=== PATIENT | female | born 1990 | race African-American/Black ===

== ENCOUNTER 2019-12-12 08:37 | Emergency (ER) | payer BC, SELFPAY ==
[2019-12-12 08:50] VITALS: BP 121/77; PULSE 79; RESP 16; TEMP 36.4; O2SAT 100
--- NOTE | 2019-12-12 09:07 | ED.GENADULT ---
HPI - General Adult General Chief complaint: Skin/Abscess/Foreign Body Stated complaint: Swollen Thumb Time Seen by Provider: 12/12/19 09:12 History of Present Illness HPI narrative: This is a 29-year-old female noted that her left was started to swell a little bit states that she used Betadine on her thumb denies any warm compresses. Patient states that her thumb really hurts and she did not know what to do for it. Related Data Allergies Allergy/AdvReac Type Severity Reaction Status Date / Time amoxicillin [From Augmentin] Allergy Swelling Verified 12/12/19 09:10 clavulanic acid Allergy Swelling Verified 12/12/19 09:10 [From Augmentin] peanut Allergy Swelling Verified 12/12/19 09:11 Review of Systems Review of Systems: Narrative: CONSTITUTIONAL: Denies fever, chills, or sweats. EYES: Denies visual changes, redness, or discharge. ENT: Denies rhinorrhea, congestion, sore throat, or otalgia. CARDIOVASCULAR:Denies chest pain, palpitations, or edema. RESPIRATORY: Denies cough or dyspnea. GASTROINTESTINAL: Denies abdominal pain, nausea, vomiting, or diarrhea. GENITOURINARY: Denies dysuria or hematuria. SKIN:[Denies rash or itching. Skin erythema and swelling MUSCULOSKELETAL:Denies back pain, joint pain, or myalgia. NEUROLOGIC: Denies headache, numbness, or weakness. PSYCHIATRIC:Denies anxiety or depression PMFSH Social History Social History Gender identity (if verbalized by the patient): Female Comments At time as signature, I have reviewed and agree with nursing past medical, social, surgical and family history. Please see nursing chart for further information. There is no relevant family history pertinent to the presenting complaint. Exam Narrative: Exam Narrative: GENERAL:Well-appearing, well-nourished, and in no acute distress. HEAD:Normocephalic, atraumatic. EYES: PERRLA and EOMI. ENT: Nares clear, no rhinorrhea or epistaxis. Mucous membranes moist. NECK: Supple. CHEST: Clear to auscultation. No respiratory distress. HEART: Regular rate and rhythm. No murmur heard. Normal peripheral pulses. ABDOMEN: Soft, nontender, nondistended, normal active bowel sounds. EXTREMITIES: Normal range of motion. No edema. SKIN: Warm, dry, no rash. Minimal amount of skin erythema to the left no fluid noted NEURO: No focal deficits. Alert and oriented x3. Course Vital Signs Vital signs: Vital Signs Temperature 97.6 F 12/12/19 08:50 Pulse Rate 79 12/12/19 08:50 Respiratory Rate 16 12/12/19 08:50 Blood Pressure 121/77 12/12/19 08:50 Pulse Oximetry 100 12/12/19 08:50 Temperature 97.6 F 12/12/19 08:50 Pulse Rate 79 12/12/19 08:50 Respiratory Rate 16 12/12/19 08:50 Blood Pressure 121/77 12/12/19 08:50 Pulse Oximetry 100 12/12/19 08:50 Medical Decision Making Vital Signs Vital Signs: Vital Signs Temperature 97.6 F 12/12/19 08:50 Pulse Rate 79 12/12/19 08:50 Respiratory Rate 16 12/12/19 08:50 Blood Pressure 121/77 12/12/19 08:50 Pulse Oximetry 100 12/12/19 08:50 Temperature 97.6 F 12/12/19 08:50 Pulse Rate 79 12/12/19 08:50 Respiratory Rate 16 12/12/19 08:50 Blood Pressure 121/77 12/12/19 08:50 Pulse Oximetry 100 12/12/19 08:50 Discharge Plan Discharge Clinical Impression: Paronychia Patient Disposition: Home, Self-Care Condition: Stable Instructions: Antibiotic Form, Paronychia (ED) Additional Instructions: Warm compresses 3-4 times a day no more than 20 minutes at a time may use Epson salt. When you are at work use a Band-Aid around her fingernail. No false fingernails Prescriptions: New mupirocin 2 % ointment 1 applic TOPICAL BID Qty: 15 RF: 0 Follow-up/Referrals: PHYSICIAN,LEGAL RESEARCH ANALYST [Primary Care Provider] - Stand Alone Forms: Work/School Release IP Time of Disposition: 09:17
== END 2019-12-12 09:20 | disposition home or self-care (01) ==
PROVIDERS: Emergency Provider Nurse Practitioner Family
DX: L03.012 Cellulitis of left finger (principal)
CPT/HCPCS: 99203; G0463

== ENCOUNTER 2020-08-27 13:45 | Emergency (ER) | payer OTHER, SELFPAY ==
--- NOTE | 2020-08-27 13:55 | ED.GENADULT ---
HPI - General Adult General Chief complaint: Urogenital-Female Stated complaint: possible uti Time Seen by Provider: 08/27/20 13:55 Source: patient Mode of arrival: ambulatory Limitations: no limitations History of Present Illness HPI narrative: 22-year-old female patient presents to the [facility] with complaints of vaginal irritation. Patient states that the irritation started yesterday. Patient states that she did see a little bit of white discharge yesterday. Patient denies any pain with urination but states that she did have a burning pain when in the shower this morning. Denies any itching. Patient states that she is sexually active but does use protection. Patient denies any bright or breast-feeding that she is aware of. Patient states she would like to be tested for STDs today. Patient denies any low back pain, lower abdominal pain, fevers, body aches or chills. Denies any nausea, vomiting or diarrhea. Related Data Allergies Allergy/AdvReac Type Severity Reaction Status Date / Time amoxicillin [From Augmentin] Allergy Swelling Verified 08/27/20 14:11 clavulanic acid Allergy Swelling Verified 08/27/20 14:11 [From Augmentin] peanut Allergy Swelling Verified 08/27/20 14:11 Review of Systems Review of Systems: Narrative: CONSTITUTIONAL: Denies fever, chills, or sweats. EYES: Denies visual changes, redness, or discharge. ENT: Denies rhinorrhea, congestion, sore throat, or otalgia. CARDIOVASCULAR: Denies chest pain, palpitations, or edema. RESPIRATORY: Denies cough or dyspnea. GASTROINTESTINAL: Denies abdominal pain, nausea, vomiting, or diarrhea. GENITOURINARY: Denies dysuria or hematuria. Positive vaginal irritation and white discharge present SKIN: Denies rash or itching. MUSCULOSKELETAL: Denies back pain, joint pain, or myalgia. NEUROLOGIC: Denies headache, numbness, or weakness. PSYCHIATRIC: Denies anxiety or depression. PMFSH Social History Social History Gender identity (if verbalized by the patient): Female Comments At the time of my signature I agree with nursing past medical history, surgical, social, and family history. There is no relevant family history pertinent to the presenting complaint. Exam Narrative: Exam Narrative: GENERAL: Well-appearing, well-nourished, and in no acute distress. HEAD: Normocephalic, atraumatic. EYES: PERRLA and EOMI. ENT: Nares clear, no rhinorrhea or epistaxis. Mucous membranes moist. NECK: Supple. No lymphadenopathy CHEST: Clear to auscultation. No respiratory distress. HEART: Regular rate and rhythm. No murmur heard. Normal peripheral pulses. ABDOMEN: Soft, nontender, nondistended, normal active bowel sounds. No CVA tenderness on percussion : Normal external female genitalia. OS is closed. No adnexal fullness or TTP. No CVA tenderness to percussion. Patient does have some white milky discharge with a notable odor. EXTREMITIES: Normal range of motion. No edema. SKIN: Warm, dry, no rash. NEURO: No focal deficits. Alert and oriented x3. Course Vital Signs Vital signs: Vital Signs Temperature 36.4 C 08/27/20 14:05 Pulse Rate 86 08/27/20 14:05 Respiratory Rate 16 08/27/20 14:05 Blood Pressure 134/80 08/27/20 14:05 Pulse Oximetry 99 08/27/20 14:05 Temperature 36.4 C 08/27/20 14:05 Pulse Rate 86 08/27/20 14:05 Respiratory Rate 16 08/27/20 14:05 Blood Pressure 134/80 08/27/20 14:05 Pulse Oximetry 99 08/27/20 14:05 Vital signs reviewed. The patient has been informed that they may have pre-hypertension or Hypertension based on a BP reading in the department. I recommend that the patient call the primary care provider listed on their discharge instructions or a physician of their choice this week to arrange follow up for further evaluation of possible pre-hypertension or Hypertension Medical Decision Making Differential Diagnosis Differential Diagnosis: Differentia
[2020-08-27 14:05] VITALS: BP 134/80; PULSE 86; RESP 16; TEMP 36.4; O2SAT 99
[2020-08-27] MEDS: AZITHROMYCIN 250 MG TABLET 1000 MG PO (14:31)
[2020-08-27] MEDS: cefTRIAXone 250 MG VIAL IM (14:32)
[2020-08-27] MEDS: LIDOCAINE HCL 1% LOCAL INJ 20 ML VIAL IM (14:34)
== END 2020-08-27 14:52 | disposition home or self-care (01) ==
PROVIDERS: Emergency Provider Nurse Practitioner Family
DX: N89.8 Other specified noninflammatory disorders of vagina (principal); Z20.2 Contact with and (suspected) exposure to infections with a predominantly sexual mode of transmission
CPT/HCPCS: 81003; 81025; 87077; 87086; 87088; 87186; 87491; 87591; 87661; 96372; 99214; A9270; G0463; J0696

== ENCOUNTER 2021-03-05 13:34 | Emergency (ER) | payer OTHER, SELFPAY ==
[2021-03-05 13:39] VITALS: BP 125/67; PULSE 77; RESP 18; TEMP 36.1; O2SAT 100
--- NOTE | 2021-03-05 14:17 | ED.FEMALEGU ---
HPI - Female Genitourinary General Chief complaint: Urogenital-Female Stated complaint: std Time Seen by Provider: 03/05/21 14:10 Source: patient Mode of arrival: ambulatory Limitations: no limitations History of Present Illness HPI Narrative: Kiera Goldstein is a 31 yo female with no PMH who [facility] with complaints of vaginal irritation and swelling but no discharge. She states that she used a different type of condom to cause irritation and also used a perfumed soap that she is relatively confident that she does not have exposure to an STD she has a single partner. She has been treated here before for similar symptoms and was treated for an STD and she stated that when the results came back from the STD cultures that in fact they were negative and the medications she was given was not necessary. I agreed to hold off antibiotics until these results are received and will treat her for bacterial infection from the irritants described above Related Data Home Medications Medication Instructions Recorded Confirmed Amoxil 03/05/21 Allergies Allergy/AdvReac Type Severity Reaction Status Date / Time amoxicillin [From Augmentin] Allergy Swelling Verified 03/05/21 13:50 clavulanic acid Allergy Swelling Verified 03/05/21 13:50 [From Augmentin] peanut Allergy Swelling Verified 03/05/21 13:50 Review of Systems Review of Systems: Narrative: CONSTITUTIONAL: Denies fever, chills, sweats. EYES: Denies visual changes, redness, discharge. ENT: Denies rhinorrhea, congestion, sore throat, otalgia. CARDIOVASCULAR: Denies chest pain, palpitations, edema. RESPIRATORY: Denies dyspnea, wheezing, cough GASTROINTESTINAL: Denies abdominal pain, nausea, vomiting, diarrhea. GENITOURINARY: Denies dysuria, hematuria, abnormal discharge has swelling of her labia and irritation of the vagina SKIN: Denies rash or itching. NEUROLOGIC: Denies numbness, or focal weakness. PSYCHIATRIC: Denies anxiety or depression. [facility] Social History Social History (Updated 03/05/21 @ 14:21 by Melany Dallas CNP) Smoking status: Never smoker Alcohol intake: never Living arrangements: with family Occupation/Education: occupation Gender identity (if verbalized by the patient): Female Comments At time of signature, I agree with nursing past medical, surgical, social and family history. There is no relevant family history pertinent to the presenting complaint. Exam Narrative: Exam Narrative: GENERAL: This is a well-nourished, well-developed patient, in mild distress. HEAD: normocephalic, atraumatic. EYES: Sclera clear/white. Vision is grossly intact. EARS: External ears normal, . Hearing grossly intact. NOSE: External nose normal without nasal discharge, nares without redness, no rhinorrhea. THROAT: Mucous membranes moist, NECK: Neck supple, non-tender CARDIOVASCULAR: Regular rate and rhythm without murmurs, gallops, or rubs. RESPIRATORY: Clear to auscultation. Breath sounds equal bilaterally. No wheezes, rales, or rhonchi. GASTROINTESTINAL: Abdomen soft, non-tender, SKIN: warm, intact with no suspicious lesions or rash, good texture and turgor. NEURO: awake, alert, and oriented to person, place and time. There were no obvious focal neurologic abnormalities. Steady gait EXTREMITIES: Normal range of motion. BACK: Nontender without deformity Course Course Emergency Course: [facility] with complaints of vaginal swelling and irritation and wants treatment for a bacterial infection UA shows 1+ leukocytes and her urine was sent for STD testing, test was negative Started on Flagyl, 3 days of Cipro Hold of treatment for STD pending urine results Vital Signs Vital signs: Vital Signs Temperature 96.9 F L 03/05/21 13:39 Pulse Rate 77 03/05/21 13:39 Respiratory Rate 18 03/05/21 13:39 Blood Pressure 125/67 03/05/21 13:39 Pulse Oximetry 100 03/05/21 13:39 Temperature 96.9 F L
== END 2021-03-05 14:34 | disposition home or self-care (01) ==
PROVIDERS: Emergency Provider Nurse Practitioner
DX: N76.0 Acute vaginitis (principal); N30.00 Acute cystitis without hematuria
CPT/HCPCS: 81003; 81025; 87086; 87491; 87591; 87661; 99214; G0463

== ENCOUNTER 2021-12-20 13:24 | Emergency (ER) | payer OTHER, SELFPAY ==
[2021-12-20 13:31] VITALS: BP 137/91; PULSE 86; RESP 16; TEMP 37.1; O2SAT 100
--- NOTE | 2021-12-20 13:43 | ED.FEMALEGU ---
HPI - Female Genitourinary General Chief complaint: Urogenital-Female Stated complaint: vaginal area sensitive Time Seen by Provider: 12/20/21 13:30 Source: patient and RN notes reviewed History of Present Illness HPI Narrative: Patient is a 31-year-old female who presents the urgent care with complaints of tenderness to the vaginal region. Patient states is been ongoing for approximately 2 days and feels like a rug burn . Patient states that she did shave yesterday but the pain was present prior to. Patient denies any recent sexual intercourse or concern for STD. Patient states that her last menstrual cycle was in November which is normal for her . Patient denies any vaginal discharge, vaginal bleeding, or pain to the vaginal area with rest. Patient states that it is more tender to touch . No other acute complaints. No acute distress noted. Patient aware of the plan of care. Some parts of this dictation were generated by voice recognition software and may contain typographical and/or grammatical inaccuracies. Related Data Home Medications Medication Instructions Recorded Confirmed No Home Medications 12/20/21 12/20/21 Allergies Allergy/AdvReac Type Severity Reaction Status Date / Time amoxicillin [From Augmentin] Allergy Swelling Verified 12/20/21 13:30 clavulanic acid Allergy Swelling Verified 12/20/21 13:30 [From Augmentin] peanut Allergy Swelling Verified 12/20/21 13:30 Review of Systems Review of Systems: CONSTITUTIONAL: Denies fever, chills, or sweats. EYES: Denies visual changes, redness, or discharge. ENT: Denies rhinorrhea, congestion, sore throat, or otalgia. CARDIOVASCULAR: Denies chest pain, palpitations, or edema. RESPIRATORY: Denies cough or dyspnea. GASTROINTESTINAL: Denies abdominal pain, nausea, vomiting, or diarrhea. GENITOURINARY: Denies dysuria or hematuria. SKIN: Denies rash or itching. : Reports of tenderness to the vaginal region MUSCULOSKELETAL: Denies back pain, joint pain, or myalgia. NEUROLOGIC: Denies headache, numbness, or weakness. All other systems reviewed are negative, except as documented in HPI. [facility] Social History Social History (Updated 03/05/21 @ 14:21 by Melany Dallas CNP) Smoking status: Never smoker Alcohol intake: never Gender identity (if verbalized by the patient): Female Comments At the time of my signature, I reviewed and agree with the nursing past medical, surgical, social, and family history. There is no relevant family history pertinent to the patient complaint. Exam Narrative: GENERAL: This is a well-nourished, well-developed patient, in no apparent distress. HEAD: normocephalic, atraumatic. EYES: PERRL. Sclera clear/white. Vision is grossly intact. EARS: External ears normal NOSE: External nose normal with no obvious nasal discharge, nares without redness, no rhinorrhea. THROAT: Mucous membranes moist NECK: Neck supple CARDIOVASCULAR: Regular rate and rhythm without murmurs, gallops, or rubs. RESPIRATORY: Clear to auscultation. Breath sounds equal bilaterally. No wheezes, rales, or rhonchi. : Mildly excoriated tissue between the right labia and vaginal tissue; internal pelvic exam not completed patient preference SKIN: warm, intact with no suspicious lesions or rash, good texture and turgor. NEURO: awake, alert, and oriented to person, place and time. There were no obvious focal neurologic abnormalities. EXTREMITIES: No clubbing, cyanosis, or edema. Course Course Level of Care: Express Care Visit Vital Signs Vital signs: Vital Signs Temperature 98.7 F 12/20/21 13:31 Pulse Rate 86 12/20/21 13:31 Respiratory Rate 16 12/20/21 13:31 Blood Pressure 137/91 H 12/20/21 13:31 Pulse Oximetry 100 12/20/21 13:31 Temperature 98.7 F 12/20/21 13:31 Pulse Rate 86 12/20/21 13:31 Respiratory Rate 16 12/20/21 13:31 Blood Pressure 137/91 H 12/20/21 13:31 Pulse Oximetry 100 12/20/21 13:31 Reviewed-patient i
== END 2021-12-20 13:48 | disposition home or self-care (01) ==
PROVIDERS: Emergency Provider Nurse Practitioner Family
DX: N89.8 Other specified noninflammatory disorders of vagina (principal)
CPT/HCPCS: 99211; G0463

== ENCOUNTER 2022-10-19 16:37 | Emergency (ER) | payer OTHER, SELFPAY ==
[2022-10-19 16:45] VITALS: BP 116/73; PULSE 76; RESP 16; TEMP 36.6; O2SAT 100
--- NOTE | 2022-10-19 17:14 | ED.EXTPRO ---
HPI - Extremity Problem General Chief complaint: Extremity Injury, Upper Stated complaint: infected right 2nd finger Time Seen by Provider: 10/19/22 17:14 Source: patient, RN notes reviewed and old records reviewed Mode of arrival: ambulatory Limitations: no limitations History of Present Illness HPI Narrative: 32-year-old female presents to the [facility] with infected base of the right 2nd finger nail. States has been like that a couple of days, took her nail off today. Inflammation noted without a fluctuant area Related Data Allergies Allergy/AdvReac Type Severity Reaction Status Date / Time amoxicillin [From Augmentin] Allergy Swelling Verified 10/19/22 16:58 clavulanic acid Allergy Swelling Verified 10/19/22 16:58 [From Augmentin] peanut Allergy Swelling Verified 10/19/22 16:58 Review of Systems Review of Systems: All systems reviewed & are unremarkable except as noted in HPI and below Constitutional: Constitutional: Reports no additional constitutional complaints Eyes: Eyes: Reports no additional eye complaints ENT: Reports system reviewed and no additional complaints, except as documented Cardiovascular: Cardiovascular: Reports no additional cardiovascular complaints, Denies chest pain and Denies dyspnea Respiratory: Respiratory: Reports no additional respiratory complaints, Denies chest congestion, Denies cough and Denies dyspnea Gastrointestinal: Gastrointestinal: Reports no additional gastrointestinal complaints, Denies abdominal pain, Denies nausea and Denies vomiting Musculoskeletal: Musculoskeletal: Reports no additional musculoskeletal complaints Integumentary/Breasts: Skin/Breast: Reports as per HPI, Reports erythema and Reports rash Neurologic: Reports system reviewed and no additional complaints, except as documented Psychiatric: Psychiatric: Reports no additional psychiatric complaints Allergic/Immunologic: Allergic/Immunologic: Reports no additional allergic/immunologic complaints PMFSH Social History Social History Smoking status: Never smoker Alcohol intake: never Gender identity (if verbalized by the patient): Female Comments At the time of my signature, I reviewed and agree with the nursing past medical, surgical, social, and family history. There is no relevant family history pertinent to the patient complaint. Exam Const: General: cooperative, healthy appearing, comfortable, no acute distress, well developed, alert and well nourished Nutritional Appearance: well nourished Orientation/consciousness: patient oriented x3 Limitations: no limitations HENMT: Head: normal to inspection Ears: hearing grossly normal bilaterally and external ears normal Face/Nose/Sinus: Normal external nose present, Normal nares present, Normal nasal mucous membranes and turbinates present and normal facial exam Face and sinus: normal facial exam Mouth: Yes Normal oral and palatal mucosa present, Yes lip normal and Yes moist mucous membranes Throat: posterior oropharynx normal and uvula midline Eyes: General: appearance normal, both eyes and all related structures Alignment and Position: alignment normal Periorbital: periorbital findings normal Conjunctivae: conjunctivae normal Pupils: Equal, round and reactive pupils present EOM: EOMs intact bilaterally Neck: Neck: normal visual inspection, full ROM, no lymphadenopathy and no meningeal signs Chest: Chest palpation & inspection: normal inspection of the chest Resp: Effort & Inspection: normal respiratory effort and able to speak in complete sentences Auscultation: clear to auscultation bilaterally, no crackles, no rales, no rhonchi and no wheezes Cardio: Rate: regular rate Rhythm: regular rhythm Back/Spine/Pelvis: Cervical Spine: cervical ROM normal Thoracic/Lumbar Spine: No thoracic spinal tenderness Skin: General skin exam: normal color and no rashes or lesions noted Lesions: no le
== END 2022-10-19 17:40 | disposition home or self-care (01) ==
PROVIDERS: Emergency Provider Nurse Practitioner
DX: L03.011 Cellulitis of right finger (principal)
CPT/HCPCS: 99213; G0463

== ENCOUNTER 2023-10-27 13:28 | Emergency (ER) | payer OTHER, SELFPAY ==
--- NOTE | 2023-10-27 13:31 | ED.FEMALEGU ---
HPI - Female Genitourinary General Chief complaint: Urogenital-Female Stated complaint: urinary issue Time Seen by Provider: 10/27/23 13:31 Source: patient Mode of arrival: ambulatory Limitations: no limitations History of Present Illness HPI Narrative: Fredy is a 33-year-old female patient presenting to the clinic today with complaints of vaginal irritation and light brown vaginal discharge. She reports she was having vaginal discharge and irritation back on September 29, 2023 and tested positive for Trichomonas. They gave her clindamycin and Ticonazole orally and she finished the medications. Just finished her menstrual. Last week and has been having some light brown vaginal discharge ever since with some vaginal irritation. She denies any new sexual partner. Last heterosexual consensual vaginal intercourse was in August. States she did give oral intercourse on September 14. She denies any fever, pelvic pain, back pain, or abdominal pain. Related Data Allergies Allergy/AdvReac Type Severity Reaction Status Date / Time amoxicillin [From Augmentin] Allergy Swelling Verified 10/27/23 13:33 clavulanic acid Allergy Swelling Verified 10/27/23 13:33 [From Augmentin] peanut Allergy Swelling Verified 10/27/23 13:33 Review of Systems Review of Systems: Pertinent positives per HPI. Patient denies any fever, chills, rash, headache, visual changes, dizziness, cough, shortness of breath, chest pain, palpitations, nausea, vomiting, diarrhea, constipation, abdominal pain, or any urinary issues. PMFSH Social History Social History Smoking status: Never smoker Alcohol intake: never Living arrangements: with family Occupation/Education: occupation Gender identity (if verbalized by the patient): Female Comments At the time of my signature, I reviewed and agree with the nursing past medical, surgical, social, and family history. There is no relevant family history pertinent to the patient complaint. Exam Narrative: General: Well-developed, well nourished, in no apparent distress Head: Normocephalic, atraumatic. Cardio: Regular rate and rhythm, s1 and s2 normal, no murmur appreciated. Resp: Clear to auscultation bilaterally, no rhonchi, rales, wheezing or rubs. Abdomen: Soft, pliable, bowel sounds present in all quadrants, non-tender to palpation, no CVAT tenderness. : Pelvic exam deferred-patient has light brown vaginal discharge-no pain-will send dirty urine to test for chlamydia, gonorrhea, and Trichomonas Course Course Emergency Course: Portions of this record may have been created with voice recognition software. Level of Care: Express Care Visit Vital Signs Vital signs: Vital signs reviewed MDM - Female Genitourinary MDM Narrative Medical decision making narrative: At the time of visit patient is resting comfortably on the exam table. Patient appears to be nontoxic. Dirty urine sent for testing-chlamydia, gonorrhea, and Trichomonas. Clean UA obtained-shows 2+ leukocytes. Bedside test is negative. We will send urine for culture. Will place the patient on Macrobid for UTI. Patient reports light brown vaginal discharge could be due to recent menses. Denies any back pain, pelvic pain, or abdominal pain. Will hold off any other medications until we get STI results. Supportive measures were discussed with the patient and they voiced understanding discharge instructions and agrees to treatment plan. Return precautions reviewed Differential Diagnosis Differential diagnosis: Likely urinary tract infection, bacterial vaginosis, trichomoniasis, cervicitis, vaginitis, cystitis and dysmenorrhea Discharge Plan Discharge Clinical Impression: Vaginal discharge, Vaginal irritation Urinary tract infection Qualifiers: Urinary tract infection type: acute cystitis Hematuria presence: without hematuria Qualified Code(s): N30.00 - Acut
[2023-10-27 13:40] VITALS: BP 114/62; PULSE 81; RESP 16; TEMP 36.7; O2SAT 100
[2023-10-27 19:49] LABS: Trichomonas Vag PCR DETECTED (NOT DETECTE)
[2023-10-27 20:23] LABS: Chlamydia trachomatis NOT DETECTED (NOT DETECTE); Neisseria gonorrhoeae PCR NOT DETECTED (NOT DETECTE)
== END 2023-10-27 14:53 | disposition home or self-care (01) ==
PROVIDERS: Emergency Provider Nurse Practitioner Family; PCP Hospitalist
DX: N30.00 Acute cystitis without hematuria (principal); A59.9 Trichomoniasis, unspecified
CPT/HCPCS: 81003; 81025; 87086; 87088; 87491; 87591; 87661; 99213; G0463

== ENCOUNTER 2023-11-25 04:41 | Emergency (ER) | payer OTHER, SELFPAY ==
[2023-11-25 04:41] VITALS: BP 130/78; PULSE 92; RESP 15; TEMP 36.9; O2SAT 100
--- NOTE | 2023-11-25 05:21 | ED.ALLEREA ---
HPI - Allergic Reaction General Chief complaint: Allergic Reaction Stated complaint: ANAPHALAXIS Time Seen by Provider: 11/25/23 04:46 Source: patient Limitations: no limitations History of Present Illness HPI narrative: Patient is a 33-year-old female presents to the emergency department complaining of an allergic reaction. Patient states around 3:45 a.m. this morning she was at work and ate a mm which she typically does however she accidentally ate a peanut butter and minimum and realized it fairly quickly when it was on her tongue it tasted it spit it out and instantly started feeling itchiness of her tongue which then progressed to swelling of her tongue and feeling like her throat was swelling in addition to shortness of breath and vomiting of nonbloody nonbilious contents. EMS was called and upon their arrival administered epinephrine 0.3 mg IM. Patient has a history of allergies and anaphylaxis to peanuts. Patient denies any other exposures. Patient denies hives, recent illness, recent injuries. patient denies having an EpiPen at home. Patient admits to feeling much better after the epinephrine and her symptoms have resolved. Related Data Allergies Allergy/AdvReac Type Severity Reaction Status Date / Time amoxicillin [From Augmentin] Allergy Swelling Verified 11/25/23 04:49 clavulanic acid Allergy Swelling Verified 11/25/23 04:49 [From Augmentin] peanut Allergy Swelling Verified 11/25/23 04:49 Review of Systems Review of Systems: A 10 system review of systems was completed on the patient and is negative except for what is stated in the HPI. Nursing and ancillary documentation was reviewed. [facility] Social History Social History Smoking status: Never smoker Alcohol intake: never Living arrangements: with family Occupation/Education: occupation Gender identity (if verbalized by the patient): Female Comments At time of signature, I have reviewed and agree with nursing past medical, surgical, social and family history unless otherwise noted. Please see the nursing chart for further information. There is no relevant family history pertinent to the presenting complaint. Exam Narrative: CONST: No acute distress. Well nourished. HENMT: Head is normocephalic and atraumatic. Moist mucous membranes. No posterior oropharynx erythema. EYES: No conjunctival icterus, injection, or pallor. PERRL. NECK: No meningeal signs. RESP: Able to speak in full sentences. Normal respiratory effort. CTAB. CARDIO: Regular rate. Regular rhythm. 2+ DP and radial pulses bilaterally. GI: Nondistended. No tenderness to palpation. Soft. : No CVA tenderness to palpation. SKIN: No rashes or lesions noted on exposed skin. NEURO: Oriented x3. Moves all extremities. EXTREM/MSK/BACK: No pedal edema. PSYCH: Normal affect. Course Vital Signs Vital signs: Vital Signs Temperature 98.4 F 11/25/23 04:41 Pulse Rate 92 11/25/23 04:41 Respiratory Rate 15 11/25/23 04:41 Blood Pressure 130/78 11/25/23 04:41 Pulse Oximetry 100 11/25/23 04:41 Oxygen Delivery Room Air 11/25/23 04:41 Temperature 98.4 F 11/25/23 04:41 Pulse Rate 92 11/25/23 04:41 Respiratory Rate 15 11/25/23 04:41 Blood Pressure 130/78 11/25/23 04:41 Pulse Oximetry 100 11/25/23 04:41 Oxygen Delivery Room Air 11/25/23 04:41 MDM - Allergic Reaction MDM Narrative Medical decision making narrative: Patient presents with the above complaint. Initial vitals are remarkable for [no significant abnormalities]. Physical examination as noted above. Plan discussed: pepcid PO, benadryl PO, dexamethasone PO, monitor. Discussed potential allergens, instructed to identify and avoid all possible allergens. Instructed to follow up with an java j2ee software engineer. Discussed potential of biphasic reaction in which symptoms of the current episode may recur without further exposur
[2023-11-25] MEDS: diphenhydrAMINE HCl CAP 25 MG CAPSULE PO (05:30)
[2023-11-25] MEDS: dexAMETHasone 2 MG TABLET 10 MG PO (05:31)
[2023-11-25] MEDS: FAMOTIDINE 20 MG TABLET PO (05:31)
[2023-11-25 06:30] VITALS: BP 136/98; PULSE 90; RESP 16; O2SAT 100
[2023-11-25 06:40] VITALS: BP 108/56; PULSE 100; RESP 17; O2SAT 100
== END 2023-11-25 06:41 | disposition home or self-care (01) ==
PROVIDERS: Emergency Provider Student in an Organized Health Care Education/Training Program; PCP Hospitalist
DX: T78.01XA Anaphylactic reaction due to peanuts, initial encounter (principal)
CPT/HCPCS: 99283; A9270; J8540

== ENCOUNTER 2025-08-16 23:18 | Emergency (ER) | payer OTHER, SELFPAY ==
[2025-08-16 23:23] VITALS: BP 134/89; PULSE 78; RESP 18; TEMP 37.1; O2SAT 98
== END 2025-08-17 02:36 | disposition left against medical advice (07) ==
PROVIDERS: PCP Hospitalist
DX: R53.1 Weakness (principal)
CPT/HCPCS: 99199